=== PATIENT | male | born 1975 | race Caucasian/White ===

== ENCOUNTER 2024-05-07 14:05 | Emergency (ER) | payer BC, SELFPAY ==
[2024-05-07 14:28] VITALS: BP 168/90; PULSE 88; RESP 20; TEMP 36.8; O2SAT 100; BMI 42.8
--- NOTE | 2024-05-07 15:09 | ED.SKABFB ---
HPI - Skin/Abscess/Foreign Bdy <Fern Ho PA-C - Last Filed: 05/07/24 18:04> General Chief complaint: Skin/Abscess/Foreign Body Stated complaint: exposed to a parasite Time Seen by Provider: 05/07/24 14:50 Source: patient Mode of arrival: Ambulatory History of Present Illness HPI narrative: Mr. Bello is a very pleasant 49-year-old male with a past medical history of schizophrenia, type 2 diabetes on metformin, hypertension who presents to the emergency department for concern for ?exposure to a parasite? x2 weeks. Patient reports over the last 2 weeks he has had the biting sensation of insects on his body. Reports that he recently started a job at [employer] and states that he was in contact with a homeless person and also was vacuuming the floors of the [employer] and is concerned that he potentially contracted a skin parasite due to one of these two exposures. Reports that he saw a doctor at a walk-in clinic who prescribed permethrin 5% cream for his entire body however he states that he was not prescribed enough of this cream to cover his entire body and to do the 2nd dose. He also did not entirely wash all of his belongings after this 1st treatment. States that he saw a stockholder 2 days ago who did not think that he had a parasite. Patient states he sees small black specks on his skin and also has a sensation of bites which is concerning him for possible parasites, worst on extremities. Patient does acknowledge his history of schizophrenia which he is not currently on medication for but does not believe that these symptoms are entirely due to hallucinations at this time but he does agree that the sensation he is feeling is somewhat anxiety inducing because of his history of schizophrenia. States that he is not experiencing any auditory or visual hallucinations and his schizophrenia has actually been much more well controlled over the last year than previously however he is not currently taking any antipsychotics because of a history of neuroleptic malignant syndrome. He denies fevers, chills, visualized head lice. He lives alone in a guest house adjacent to his parent's house, nobody else is experiencing these symptoms. Admits to occasional alcohol and marijuana use, nighttime Benadryl use for sleep, denies other drugs. Related Data Previous Rx's Medication Instructions Recorded hydroxyzine HCl 25 mg tablet 25 mg PO BEDTIME PRN itching #30 05/07/24 tabs permethrin 1 % topical liquid 60 ml topical .once #118 mL 05/07/24 permethrin 5 % topical cream 1 applic topical Q14D 2 doses #300 05/07/24 grams Review of Systems <Fern Ho PA-C - Last Filed: 05/07/24 18:04> Review of Systems ROS Unobtainable: All systems reviewed & are unremarkable except as noted in HPI and below Patient History <Fern Ho PA-C - Last Filed: 05/07/24 18:04> Social History Smoking Status: Current every day smoker Smoking Status: Current every day smoker Exam <Fern oH PA-C - Last Filed: 05/07/24 18:04> Narrative Exam Narrative: GENERAL: 49 year old patient appears stated age. Obese patient, in no acute distress. HEAD: Atraumatic. Normocephalic. No visualized head lice. NECK: Trachea midline. Cervical ROM intact. CARDIOVASCULAR: Regular rate RESPIRATORY: ?Nonlabored respirations. ?Speaking in clear, full sentences. ?Clear to auscultation. GASTROINTESTINAL: Abdomen soft, non-tender, nondistended. EXTREMITIES: No edema or joint tenderness. BACK: No skin lesion on back NEURO: AOx3. ?Clear speech. ?Moves all 4 extremities appropriately. Good insight and judgment. Somewhat rapid speech. Responds appropriately to questions. Sensation intact to light touch throughout the body. SKIN: Small erythematous macules and scabs in various stages of healing on the patient's extremities and front of his trunk. No lesions on the back. Scattered macules on scalp. Erythematous and flaking skin on bilateral feet. Initial Vital Signs Initial Vital Signs: Vital Signs Temperature 98.2 F 05/07/24 14:28 Pulse Rate 88 05/07/24 14:28 Respiratory Rate 20 05/07/24 14:28 Blood Pressure 168/90 H 05/07/24 14:28 Pulse Oximetry 100 05/07/24 14:28 Oxygen Delivery Method Room Air 05/07/24 14:28 <Brianne Clark MD - Last Filed: 05/07/24 18:58> Initial Vital Signs Initial Vital Signs: Vital Signs Temperature 98.2 F 05/07/24 14:28 Pulse Rate 88 05/07/24 14:28 Respiratory Rate 20 05/07/24 14:28 Blood Pressure 168/90 H 05/07/24 14:28 Pulse Oximetry 100 05/07/24 14:28 Oxygen Delivery Method Room Air 05/07/24 14:28 Course <Fern Ho PA-C - Last Filed: 05/07/24 18:04> Orders Ordered: ED Orders 05/07/24 15:32 Consult to [facility] Manager Gift Stat Vital Signs Vital signs: Vital Signs - 8 hr 05/07/24 14:28 05/07/24 17:37 Temperature 98.2 F 97.6 F Pulse Rate 88 60 Respiratory Rate 20 16 Blood Pressure 168/90 H 146/83 H Pulse Oximetry 100 96 Oxygen Delivery Method Room Air Room Air <Brianne Clark MD - Last Filed: 05/07/24 18:58> Orders Ordered: ED Orders 05/07/24 15:32 Consult to [facility] Manager Gift Stat Vital Signs Vital signs: Vital Signs - 8 hr 05/07/24 14:28 05/07/24 17:37 Temperature 98.2 F 97.6 F Pulse Rate 88 60 Respiratory Rate 20 16 Blood Pressure 168/90 H 146/83 H Pulse Oximetry 100 96 Oxygen Delivery Method Room Air Room Air MDM - Skin/Abscess/Foreign Bdy <Fern Ho PA-C - Last Filed: 05/07/24 18:04> Medical Records Medical records narrative: No records available for review. MDM Narrative Medical decision making narrative: 49-year-old male with a past medical history of schizophrenia, type 2 diabetes on metformin, hypertension who presents to the emergency department for concern for ?exposure to a parasite? x2 weeks. Patient reports over the last 2 weeks he has had the biting sensation of insects on his body. Differential diagnosis includes but is not limited to formication, delusions of parasitosis, scabies, lice, bedbugs, contact dermatitis, psoriasis, seborrheic dermatitis, etc. On exam the patient is in no acute distress, nontoxic appearing, vital signs appropriate except for mildly elevated blood pressure. He is concerns for skin parasite with small areas of skin picking scabbing and macules throughout the body only in areas that he can reach, sparing his back. He was previously treated with 5% permethrin skin lotion however reports that he was not prescribed enough to cover his whole-body and did not wash all belongings after treatment. Had an extensive discussion with the patient that his symptoms could potentially be scabies however they could also be formication relating to neurologic or psychiatric abnormality. I agreed to treat the patient at this time for potential scabies as he does have numerous areas of erythema on his hands and feet however no distinct skin tracking. Recommended permethrin 5% from the neck down for 8 hours, repeat in a week. We will also prescribe permethrin 1% for 10 minutes on the scalp as he is concerned for lice however no visualized lice at this time. Extensively discussed the importance of cleaning all of his belongings on high temperature to prevent reinfection. We discussed that if he continues to have symptoms despite this, it is very possible that these symptoms are more so related to his schizophrenia and he needs to follow up with his primary doctor and a psychiatrist. The patient verbalized understanding and is happy with this plan. Social work came to meet with the patient given his concerns for finances and also he does not currently have a psychiatrist. Discussed strict ED return precautions with the patient. He has good insight and judgment, feel safe going home. STORE LEADER met with him and graciously assisted patient with multiple needs. He is agreeable with the plan, understands ED return precautions and is stable for discharge home. Discharge Plan Departure Patient Disposition: Home Clinical Impression: Formication, Scabies Instructions: DI for Scabies Activity Restrictions/Additional Instructions: Dear Mr. Bello, Today you were evaluated for concern of parasites. At this time I am concerned your symptoms could be related to scabies or they could also be neurologic/psychiatric manifestations of the skin. I have prescribed you permethrin 5% cream to apply to the entire body neck down, keep on for 8 hours, and then rinse off for possible scabies in addition to permethrin 1% liquid to put on your scalp for 10 minutes to treat for possible lice. You may repeat treatment for both of these in 1 week. You also need to wash and dry all of your clothing and sheets on high heat to prevent reinfection. If your symptoms continue after successful treatment, it is likely not a parasite in instead something that you need to follow up with your primary care or psychiatric doctor for. You have also been prescribed hydroxyzine which is a medication that can help with itching and sleeping. Do not take this medication with Benadryl as it is a similar medication. Please follow up with your primary care doctor within the next 2-3 days for ER follow-up. (If you do not have a PCP you can call [phone]. ?to schedule an appointment with an [facility] Primary Care Provider) IF YOU DEVELOP ANY NEW OR WORSENING SYMPTOMS, RETURN TO THE ER! Please read the attached instructions, they highlight more specific treatments and interventions for you at home. Thank you for letting me participate in your care, Fern Ho PA-C Prescriptions: New permethrin 5 % cream 1 applic topical Q14D Qty: 300 0RF Rx Instructions: apply second treatment in 1-2 weeks permethrin 1 % liquid 60 ml topical .once Qty: 118 0RF Rx Instructions: Wash hair with shampoo then apply 1% permethrin for 10 min and rinse, repeat on day 9 hydroxyzine HCl 25 mg tablet 25 mg PO BEDTIME PRN (Reason: itching) Qty: 30 0RF Referrals: Meg Orlando PA-C [Primary Care Provider] - Stand Alone Forms: Patient Portal/API/Survey ED Sign-out <Brianne Clark MD - Last Filed: 05/07/24 18:58> Cosign ED Attending Cosignature Attestation: I was immediately available in the department for consultation throughout this patient's visit. Brianne Clark MD
--- NOTE | 2024-05-07 17:27 | CM.SWNOTE ---
ED CHIEF DEPUTY COURT CLERK Assessment Note: Pt is a 49yo male, resident of [place], is seen in the ED for suspected scabies and anxiety. Pt lives in a guest house on the same property as his parents. Pt's Primary Care Provider is Dr. Meg Orlando and insurance is [employer]. Reviewed chart and discussed with multidisciplinary team pt's medical status and initial discharge needs. Per PA, pt has a hx of schizophrenia and is not taking any medications at this time. Pt presents with good insight and is hopeful to complete aggressive treatment for scabies and reassess if this is actually scabies or schizophrenia presenting differently than the past. CHIEF DEPUTY COURT CLERK entered room to meet with patient, introduced self and role. Pt endorses he believes he was exposed to parasites at work ([employer]). Pt agreeable with treatment plans as discussed with PA (above). Pt states he is technically not employed at [employer] anymore due to this illness and is seeking resources for laundry/gas assistance in the meantime. ED CHIEF DEPUTY COURT CLERK sent referral to [facility] [employer] [facility] via [employer], provided contact information and educated on program details. Pt appreciative. ED CHIEF DEPUTY COURT CLERK provided laundry services in both [place] and [place] pt can look into for additional support in cleaning all clothes/bedding during treatment process. ED CHIEF DEPUTY COURT CLERK spoke with pt extensively about treatment plan, relevant history. Pt presented as circumstantial in speech, exhibiting full range affect. Pt will follow up with PCP, currently has an appt to establish as a new patient on 05/21. Plan: Pt to discharge home and complete scabies treatment, follow up with referral with [facility]. BILLY Bailey
--- NOTE | 2024-05-07 17:31 | PC.NURSE ---
Pt reports having skin rashes. states he thinks he has an ectoparasite. 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 He has spots on arms, abdomen, legs with scabs; slight varied skin discoloration (old scars?) Pt states he shook a becki hand outside the [employer] when he felt two immediate bite jackson; and thinks he may have gotten a parasite from him. Pt states he has been having bite sensations. Pt reports delusional paracytosis from [id number] and hx of schizophrenia. Pt states he has not taken any medications for schizophrenia in a while. pt reports also cleaning the floors of [employer] where he got old vaccum dust on him and states he may have gotten ill from that too? Pt unsure if he is having psychosis or not. Repsirations regular and unlabored. Pt calm.
[2024-05-07 17:37] VITALS: BP 146/83; PULSE 60; RESP 16; TEMP 36.4; O2SAT 96
== END 2024-05-07 17:37 | disposition home or self-care (01) ==
PROVIDERS: Emergency Provider Physician Assistant; PCP Physician Assistant
DX: R20.2 Paresthesia of skin (principal); B86 Scabies
CPT/HCPCS: 99281

== ENCOUNTER 2024-09-11 16:37 | Emergency (ER) | payer BC, SELFPAY ==
[2024-09-11 16:48] VITALS: BP 188/91; PULSE 83; RESP 18; TEMP 36.6; O2SAT 97; BMI 40.8
== END 2024-09-11 19:18 | disposition left against medical advice (07) ==
PROVIDERS: Emergency Provider Emergency Medicine; PCP Physician Assistant
CPT/HCPCS: 99281

== ENCOUNTER 2024-09-12 01:23 | Emergency (ER) | payer BC, SELFPAY ==
[2024-09-12 01:28] VITALS: BP 168/87; PULSE 86; RESP 16; TEMP 36.8; O2SAT 99; BMI 40.2
--- NOTE | 2024-09-12 03:32 | ED_ITS ---
HPI - Skin/Abscess/Foreign Bdy General Chief complaint: Skin/Abscess/Foreign Body Stated complaint: in lots of pain and wants help Time Seen by Provider: 09/12/24 02:09 Source: patient Mode of arrival: Ambulatory Limitations: no limitations History of Present Illness HPI narrative: 49-year-old man with a history of schizophrenia comes to the ER because of various skin complaints. He states he thinks that he has some type of insects or mites burrowing under his skin such as lice or scabies. He has already seen 2 dermatologists and neither 1 diagnosed him with lice or scabies. The man is seeking a skin biopsy to figure out what is going on. He complains of some itchy macular rashes on his back and scabbing circular rashes all over his body. He denies any recent fever chills sweats nausea or vomiting or any other complaints. Related Data Previous Rx's ?Medication ?Instructions ?Recorded hydroxyzine HCl 25 mg tablet 25 mg PO BEDTIME PRN itch ing #30 05/07/24 tabs permethrin 1 % topical liquid 60 ml topical .once #118 mL 05/07/24 permethrin 5 % topical cream 1 applic topical Q14D 2 d oses #300 05/07/24 grams Allergies Allergy/AdvReac Type Severity Reaction Status Date / Time No Known Allergies Allergy Verified 09/12/24 01:29 Patient History tobacco type: cigarettes Alcohol type: hard liquor Exam Initial Vital Signs Initial Vital Signs: Vital Signs Temperature 98.2 F 09/12/24 01:28 Pulse Rate 86 09/12/24 01:28 Respiratory Rate 16 09/12/24 01:28 Blood Pressure 168/87 H 09/12/24 01:28 Pulse Oximetry 99 09/12/24 01:28 Oxygen Delivery Method Room Air 09/12/24 01:28 Skin Rashes: rashes noted macules bilateral back other (large macules on the back bilaterally consisstent with hives), papules multiple locations other (papules in various stages of healing all round the body, i suspect he has been scra tching them based on the locations/appearance) Course Vital Signs Vital signs: Vital Signs - 8 hr 09/12/24 01:28 Temperature 98.2 F Pulse Rate 86 Respiratory Rate 16 Blood Pressure 168/87 H Pulse Oximetry 99 Oxygen Delivery Method Room Air Discharge Plan Departure Patient Disposition: Elopement Clinical Impression: Rash Activity Restrictions/Additional Instructions: Patient was advised to return to the ER any time for any reason. The patient decided to leave got angry during my evaluation. Prescriptions: No Action permethrin 5 % cream 1 applic topical Q14D Qty: 300 0RF Rx Instructions: apply second treatment in 1-2 weeks permethrin 1 % liquid 60 ml topical .once Qty: 118 0RF Rx Instructions: Wash hair with shampoo then apply 1% permethrin for 10 min and rinse, repeat on day 9 hydroxyzine HCl 25 mg tablet 25 mg PO BEDTIME PRN (Reason: itching) Qty: 30 0RF Referrals: Meg Orlando PA-C [Primary Care Provider, Medical] - As soon as possible
== END 2024-09-12 03:49 | disposition left against medical advice (07) ==
PROVIDERS: Emergency Provider Emergency Medicine; PCP Physician Assistant
DX: R21 Rash and other nonspecific skin eruption (principal)
CPT/HCPCS: 99281